=== PATIENT | male | born 1940 ===

== ENCOUNTER 2016-11-28 16:22 | Emergency (ER) | payer OTHER ==
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
== END 2016-11-28 17:40 | disposition home or self-care (01) ==
LOC: ER 16:22
PROC: 2W3JX1Z Immobilization of Right Finger using Splint (ICD-10-PCS; principal; 2016-11-28)
DX: S00.31XA Abrasion of nose, initial encounter (principal); S00.511A Abrasion of lip, initial encounter; M79.644 Pain in right finger(s); V49.50XA Passenger injured in collision with unspecified motor vehicles in traffic accident, initial encounter; Y92.410 Unspecified street and highway as the place of occurrence of the external cause